=== PATIENT | female | born 1985 | race African-American/Black ===

== ENCOUNTER 2024-10-13 10:20 | Emergency (ER) | payer OTHER, SELFPAY ==
[2024-10-13 10:25] VITALS: BP 163/89
[2024-10-13 10:47] VITALS: BP 152/78
[2024-10-13] MEDS: NSS 250 IV (10:47)
[2024-10-13] MEDS: DECADRON 10 MG IV (10:48)
[2024-10-13] MEDS: PEPCID 20 MG IV (10:51)
[2024-10-13] MEDS: BENADRYL 12.5 MG IV (10:53)
[2024-10-13 10:58] VITALS: BMI 23.0
--- NOTE | 2024-10-13 11:04 | ED.GENMED ---
History of Present Illness
General
Chief Complaint: Allergic Reaction
Source: patient
Exam Limitations: none
Time Seen by Provider: 10/13/24 10:30
Nursing documentation reviewed up to this point in time: agreed with
History of Present Illness
History of Present Illness:
Pt presents to ED secondary to worsening facial swelling with scalp itchiness after using new hair product 2 days ago. Since then, patient has washer her hair multiple times and has taken benadryl without sig. improvement in symptoms. Denies fever.
Denies throat swelling or difficulty swallowing. Denies sob. Denies n/v. Denies headache. Pt states that she has had previous allergic reaction, but never this severe.
Review of Systems
Review of Systems
Allergies reviewed?: Yes
All Other Systems: ROS reviewed and negative except as documented in HPI and ROS
Constitutional: Reports no symptoms
EENT: Reports no symptoms
Respiratory: Reports no symptoms
Cardiac: Reports no symptoms
ABD/GI: Reports no symptoms
Musculoskeletal: Reports no symptoms
Skin: Reports itching, rash and other (facial swelling)
Neurological: Reports no symptoms
Phy Exam
Physical Exam
Physical Exam:
Physical Exam
General: mild distress, not acutely ill. afebrile
Head: nc/at. eomi
Neck: supple. no meningeal signs. normal posterior pharynx
Heart: s1/s2 regular rate and rhythm, no murmur. equal radial pulses.
Lungs: no acute respiratory distress. clear bilaterally
Abdomen: normal bowel sounds. not tender.
Neuro: alert and oriented. no focal neurological deficits
Skin: diffuse facial swelling noted including b/l periorbital swelling
Psychiatric: well kept. interactive and cooperative
Extremities: no edema. no calf tenderness.
Course
Orders/Labs/Results
Orders:
Orders
10/13/24 10:39
0.9% Sodium Chloride 250 ml [Nss] 250 ml IV BOLUS
Dexamethasone Sod Phosphate [Decadron] 10 mg IV NOW STA
Diphenhydramine [Benadryl] 12.5 mg IV NOW STA
Famotidine [Pepcid] 20 mg IV NOW STA
Vital Signs
Initial and Last Documented VS:
Initial Vital Signs
Temp Pulse Resp BP Pulse Ox
97.9 F 73 18 163/89 99
10/13/24 10:25 10/13/24 10:25 10/13/24 10:25 10/13/24 10:25 10/13/24 10:25
Last Documented Vital Signs
Temp Pulse Resp BP Pulse Ox
97.9 F 71 17 152/78 98
10/13/24 10:25 10/13/24 12:00 10/13/24 10:45 10/13/24 10:47 10/13/24 10:45
MDM/Problems Addressed
MDM/Problems Addressed:
Patient with significant improvement in symptoms after treatment. Patient remains afebrile, hemodynamically stable, and without any respiratory distress. Patient will be discharged home in stable condition, with recommendation to continue to use
Benadryl to 6 hours over the next 48 hours, along with prescribed prednisone x 2 days. Advised to return to ED with any worsening symptoms. Patient expressed understanding at time of discharge.
*Critical Care Note
Total Time (30-74mins, 75-104mins- exclusive of procedures): Not Applicable
ED Attending Note
-
Portions of this chart may have been created with voice recognition software.� Occasional wrong word or��sound alike� substitutions may have occurred due to the inherent limitations of voice recognition software.
Discharge Plan
Departure
Patient Disposition: Home (Routine Discharge)
Date of Disposition: 10/13/24
Time of Disposition: 13:40
Patient with high blood pressure during this ER visit?: Yes
Discharge Problem:
Allergic reaction
Instructions: Allergic Reaction ED
Prescriptions:
New
prednisone 50 mg Tablet
50 mg PO DAILY Qty: 2 0RF
No Action
fluticasone propion-salmeterol [Advair Diskus] 250-50 mcg/dose Blister With Device
1 inh INHALATION R BID
amlodipine 10 mg Tablet
10 mg PO DAILY
ibuprofen [Motrin IB] 200 mg Tablet
400 mg PO TIDPRN PRN (Reason: fever)
albuterol sulfate [Ventolin HFA] 90 mcg/actuation Hfa Aerosol Inhaler
2 puff INHALATION R BID
escitalopram oxalate 10 mg Tablet
10 mg PO QPM
Biktarvy 50-200-25 mg Tablet
1 tab PO DAILY
levofloxacin 750 mg tablet
750 mg PO DAILY Qty: 5 0RF
oseltamivir [Tamiflu] 75 mg capsule
75 mg PO BID 3 Days Qty: 6 0RF
Referrals:
Moise Wallis DO [Family Provider] -
Activity Restrictions/Additional Instructions:
As discussed, please follow-up with your primary care physician with any further concerns. Please continue to use Benadryl every 6 hours over the next 40 hours, for symptomatic relief, along with prescribed steroid, which is to be taken daily over
the next 2 days. Your prescription has been sent electronically to [facility] pharmacy in [place].
Interventions
Interventions:
*Risk Screen - Suicide Last Done: 10/13/24 10:25
*General Assessment Last Done: 10/13/24 10:25
*Neglect/Abuse Screening Last Done: 10/13/24 10:25
*ED COVID-19 Vaccine History Last Done: 10/13/24 10:57
ED-Skin Assessment Last Done: 10/13/24 10:58
Discharge Date and Time
Print Language: CITIZ[place]
[2024-10-13 15:07] VITALS: BP 136/83
== END 2024-10-13 15:11 | disposition home or self-care (01) ==
LOC: EMR 10:20
PROVIDERS: EMERGENCY PHYSICIAN Emergency Medicine; FAMILY PHYSICIAN Family Medicine
DX: T78.40XA Allergy, unspecified, initial encounter (principal); X58.XXXA Exposure to other specified factors, initial encounter; R03.0 Elevated blood-pressure reading, without diagnosis of hypertension
CPT/HCPCS: 99284; 96374; 96375 ×2; 96361